=== PATIENT | female | born 1975 | race Caucasian/White ===

== ENCOUNTER → 2023-05-30 17:36 | Outpatient (REF) | payer BC, SELFPAY ==
[2023-06-08 08:45] LABS: HPV, High Risk Not Detected; HPV, High Risk Source Cervical
== END ==
LOC: CPAP 17:36
PROVIDERS: ATTENDING PHYSICIAN Obstetrics & Gynecology
DX: Z01.419 Encounter for gynecological examination (general) (routine) without abnormal findings (principal); Z12.4 Encounter for screening for malignant neoplasm of cervix; Z11.51 Encounter for screening for human papillomavirus (HPV)
CPT/HCPCS: 87624; G0123

== ENCOUNTER → 2023-06-22 14:27 | Outpatient (REF) | payer BC, SELFPAY | LOC: RAD 14:27 | PROVIDERS: ATTENDING PHYSICIAN Obstetrics & Gynecology; FAMILY PHYSICIAN Family Medicine | DX: Z30.431 Encounter for routine checking of intrauterine contraceptive device (principal) | CPT/HCPCS: 76830; 76856 ==

== ENCOUNTER → 2023-10-08 11:22 | Outpatient (REF) | payer BC, SELFPAY ==
[2023-10-08 12:12] LABS: ALT (SGPT) 15 U/L (0-35); AST (SGOT) 31 U/L (14-36); Albumin 4.6 g/dl (3.5-5.0); Alkaline Phosphatase 60 U/L (38-126); Blood Urea Nitrogen 13 mg/dl (7-17); Calcium 9.7 mg/dl (8.4-10.2); Carbon Dioxide 26 mmol/L (22-30); Chloride 105 mmol/L (98-107); Glucose 99 mg/dl (70-99); HDL Cholesterol 92 mg/dl; LDL Cholesterol, Calculated 61 mg/dl; Magnesium 2.2 mg/dl (1.6-2.3); Potassium 4.4 mmol/L (3.5-5.1); Sodium 139 mmol/L (135-145); Total Bilirubin 0.6 mg/dl (0.2-1.3); Total Cholesterol 162 mg/dl (50-199); Total Protein 7.4 g/dl (6.3-8.2); Triglyceride 48 mg/dl (10-149); Very Low Density Lipoprotein 9 mg/dl (0-30); eGFR > 60.00
[2023-10-08 12:40] LABS: TSH Reflex To Free T4 2.23 uIU/ml (0.47-4.68)
[2023-10-08 13:10] LABS: % Basophils 0.9 % (0-2); % Eosinophils 3.1 % (0-6); % Immature Granulocytes 0.2 % (0-0.5); % Monocytes 14.2 % (1.7-9.3); % Neutrophils 57.6 % (42.2-75.2); Absolute Eosinophils 0.1 10^3/uL (0-0.7); Absolute Lymphocytes 1.1 10^3/uL (1.2-3.4); Absolute Monocytes 0.6 10^3/uL (0.1-0.6); Absolute Neutrophils 2.6 10^3/uL (1.4-6.5); Hematocrit 40.3 % (37.0-47.0); Hemoglobin 13.7 g/dL (12.0-16.0); Mean Corpuscular Hgb 33.5 pg (27.0-31.0); Mean Corpuscular Volume 98.5 fL (81.0-99.0); Mean Platelet Volume 9.9 fL (7.4-10.4); Nucleated Red Blood Cells % 0 %; Platelet Count 173 10^3/uL (130-400); Red Blood Cell Count 4.09 10^6/uL (4.20-5.40); Red Cell Dist. Width 11.8 % (11.5-14.5); White Blood Cell Count 4.5 10^3/uL (4.8-10.8)
== END ==
LOC: REG 11:22
PROVIDERS: ATTENDING PHYSICIAN Physician Assistant Medical
DX: Z00.01 Encounter for general adult medical examination with abnormal findings (principal); K59.00 Constipation, unspecified
CPT/HCPCS: 36415; 80053; 80061; 83735; 84443; 85025

== ENCOUNTER → 2024-01-05 14:18 | Outpatient (REF) | payer BC, SELFPAY | LOC: WDC 14:18 | PROVIDERS: ATTENDING PHYSICIAN Obstetrics & Gynecology; FAMILY PHYSICIAN Physician Assistant Medical | DX: Z12.31 Encounter for screening mammogram for malignant neoplasm of breast (principal) | CPT/HCPCS: 77063; 77067 ==

== ENCOUNTER → 2024-06-13 16:18 | Outpatient (REF) | payer BC, SELFPAY ==
[2024-06-13 18:10] LABS: % Basophils 0.5 % (0-2); % Eosinophils 2.6 % (0-6); % Lymphocytes 24.5 % (20.5-51.1); % Neutrophils 58.4 % (42.2-75.2); ALT (SGPT) 17 U/L (0-35); AST (SGOT) 29 U/L (14-36); Absolute Eosinophils 0.1 10^3/uL (0-0.7); Absolute Monocytes 0.6 10^3/uL (0.1-0.6); Absolute Neutrophils 2.5 10^3/uL (1.4-6.5); Albumin 4.7 g/dl (3.5-5.0); Alkaline Phosphatase 63 U/L (38-126); Blood Urea Nitrogen 15 mg/dl (7-17); Calcium 9.6 mg/dl (8.4-10.2); Carbon Dioxide 27 mmol/L (22-30); Chloride 104 mmol/L (98-107); Glucose 85 mg/dl (70-99); HDL Cholesterol 96 mg/dl; Hematocrit 38.1 % (37.0-47.0); Hemoglobin 12.8 g/dL (12.0-16.0); LDL Cholesterol, Calculated 75 mg/dl; Mean Corp Hgb Conc. 33.6 g/dL (33.0-37.0); Mean Corpuscular Hgb 32.7 pg (27.0-31.0); Mean Corpuscular Volume 97.2 fL (81.0-99.0); Mean Platelet Volume 9.8 fL (7.4-10.4); Nucleated Red Blood Cells % 0 %; Platelet Count 163 10^3/uL (130-400); Potassium 4.5 mmol/L (3.5-5.1); Red Blood Cell Count 3.92 10^6/uL (4.20-5.40); Red Cell Dist. Width 12.3 % (11.5-14.5); Sodium 137 mmol/L (135-145); Total Bilirubin 0.6 mg/dl (0.2-1.3); Total Cholesterol 182 mg/dl (50-199); Total Protein 7.3 g/dl (6.3-8.2); Triglyceride 59 mg/dl (10-149); Very Low Density Lipoprotein 11 mg/dl (0-30); White Blood Cell Count 4.2 10^3/uL (4.8-10.8); eGFR > 60.00
[2024-06-13 18:38] LABS: TSH Reflex To Free T4 2.06 uIU/ml (0.47-4.68)
== END ==
LOC: REG 16:18
PROVIDERS: ATTENDING PHYSICIAN Family Medicine
DX: R00.2 Palpitations (principal)
CPT/HCPCS: 36415; 80053; 80061; 83735; 84443; 85025

== ENCOUNTER → 2024-07-04 11:09 | Outpatient (REF) | payer BC, SELFPAY ==
[2024-07-04 11:52] LABS: % Basophils 0.6 % (0-2); % Eosinophils 2.8 % (0-6); % Lymphocytes 25.4 % (20.5-51.1); % Monocytes 15.2 % (1.7-9.3); Absolute Eosinophils 0.1 10^3/uL (0-0.7); Absolute Lymphocytes 0.9 10^3/uL (1.2-3.4); Absolute Monocytes 0.5 10^3/uL (0.1-0.6); Hematocrit 40.8 % (37.0-47.0); Hemoglobin 13.7 g/dL (12.0-16.0); Mean Corp Hgb Conc. 33.6 g/dL (33.0-37.0); Mean Corpuscular Hgb 32.8 pg (27.0-31.0); Mean Corpuscular Volume 97.6 fL (81.0-99.0); Mean Platelet Volume 9.1 fL (7.4-10.4); Nucleated Red Blood Cells % 0 %; Platelet Count 157 10^3/uL (130-400); Red Blood Cell Count 4.18 10^6/uL (4.20-5.40); Red Cell Dist. Width 11.8 % (11.5-14.5); White Blood Cell Count 3.6 10^3/uL (4.8-10.8)
[2024-07-06 18:16] LABS: Number Of Markers 31 markers; Source Blood
== END ==
LOC: REG 11:09
PROVIDERS: ATTENDING PHYSICIAN Internal Medicine Hematology & Oncology; FAMILY PHYSICIAN Physician Assistant Medical
DX: D72.819 Decreased white blood cell count, unspecified (principal)
CPT/HCPCS: 36415; 85025

== ENCOUNTER → 2024-07-09 14:01 | Outpatient (REF) | payer BC, SELFPAY | LOC: RAD 14:01 | PROVIDERS: ATTENDING PHYSICIAN Internal Medicine Hematology & Oncology; FAMILY PHYSICIAN Physician Assistant Medical | DX: D72.819 Decreased white blood cell count, unspecified (principal); R89.6 Abnormal cytological findings in specimens from other organs, systems and tissues | CPT/HCPCS: 70491; 71260; 74177; Q9967 ==

== ENCOUNTER → 2024-07-15 12:14 | Outpatient (REF) | payer BC, SELFPAY | LOC: CPAP 12:14 | PROVIDERS: ATTENDING PHYSICIAN Obstetrics & Gynecology | DX: Z11.51 Encounter for screening for human papillomavirus (HPV) (principal); Z01.419 Encounter for gynecological examination (general) (routine) without abnormal findings | CPT/HCPCS: 87624 ==

== ENCOUNTER 2024-07-21 06:25 | Day surgery (SDC) | payer BC, SELFPAY ==
[2024-07-21] VITALS (8 sets, daily range): BP systolic 94–105; BP diastolic 53–77; BMI 22.2
[2024-07-21] MEDS: TYLENOL 1000 MG PO (09:55)
[2024-07-21] MEDS: NORMOSOL-R/PLASMALYTE-A 1000 IV (09:56)
[2024-07-21] MEDS: HEPARIN 5000 UNITS SC (11:40)
--- NOTE | 2024-07-21 12:32 | OR.RPT ---
Operative Report
Operative Report
Primary Surgeon: Harshil
Assisting: Joslyn ARMENDARIZ
Pre-op Diagnosis: Lymphadenopathy
Post-op Diagnosis: Same
Procedure Performed: Left inguinal lymph node excision
Anesthesia Type: MAC local
Specimen / Cultures: Left groin lymph nodes
Estimated Blood Loss: 1cc
Complications: None immediate
Operative Findings: Existing scar used for incision, 2 joined nodes excised in toto
Date of Surgery: 07/21/24
Indications: This 48F developed lymphadenopathy of her groins and axillae. Left groin lymph node excision under MAC local was elected.
PROCEDURE: After informed consent was obtained, the left groin was marked together with the patient in preop and the patient was brought to the operative suite and placed supine on the operating table. The patient was sedated, prepped and draped in
the usual sterile manner and an adequate local anesthetic was administered using 1% lidocaine with epinephrine.
A skin incision was made with #10 blade at the site of her existing scar and the skin was divided with electrocautery. The nodes were dissected away from surrounding structures using blunt dissection and electrocautery and ultimately excised intact.
Hemostasis was achieved with electrocautery. The incision was then closed in layers with deep dermal interrupted 3-0 vicryl and interrupted 4-0 monocryl suture. Topical skin glue was applied.
The patient tolerated the procedure well and was taken to the PACU in stable condition.
The assistance of Joslyn ARMENDARIZ was required due to the complexity of the procedure. During the procedure she assisted with retraction, resection, and closure of the wound.
== END 2024-07-21 14:15 | disposition home or self-care (01) ==
LOC: SDS 06:25
PROVIDERS: ATTENDING PHYSICIAN Surgery
DX: C83.05 Small cell B-cell lymphoma, lymph nodes of inguinal region and lower limb (principal); R59.0 Localized enlarged lymph nodes
CPT/HCPCS: 38531; 88305; 88341; 88342; C1894

== ENCOUNTER → 2024-08-05 13:34 | Outpatient (REF) | payer BC, SELFPAY ==
[2024-08-05 14:13] LABS: % Basophils 0.6 % (0-2); % Eosinophils 2.4 % (0-6); % Immature Granulocytes 0.2 % (0-0.5); % Lymphocytes 18.2 % (20.5-51.1); % Monocytes 9.5 % (1.7-9.3); % Neutrophils 69.1 % (42.2-75.2); Absolute Eosinophils 0.1 10^3/uL (0-0.7); Absolute Monocytes 0.5 10^3/uL (0.1-0.6); Absolute Neutrophils 3.7 10^3/uL (1.4-6.5); Hematocrit 40.6 % (37.0-47.0); Hemoglobin 13.5 g/dL (12.0-16.0); Mean Corp Hgb Conc. 33.3 g/dL (33.0-37.0); Mean Corpuscular Hgb 32.7 pg (27.0-31.0); Mean Corpuscular Volume 98.3 fL (81.0-99.0); Mean Platelet Volume 9.7 fL (7.4-10.4); Nucleated Red Blood Cells % 0 %; Platelet Count 167 10^3/uL (130-400); Red Blood Cell Count 4.13 10^6/uL (4.20-5.40); White Blood Cell Count 5.4 10^3/uL (4.8-10.8)
[2024-08-05 14:25] LABS: ALT (SGPT) 15 U/L (0-35); AST (SGOT) 24 U/L (14-36); Albumin 4.4 g/dl (3.5-5.0); Alkaline Phosphatase 51 U/L (38-126); Blood Urea Nitrogen 20 mg/dl (7-17); Calcium 9.7 mg/dl (8.4-10.2); Carbon Dioxide 30 mmol/L (22-30); Chloride 108 mmol/L (98-107); Glucose 76 mg/dl (70-99); LDH 154 U/L (120-246); Potassium 4.1 mmol/L (3.5-5.1); Sodium 141 mmol/L (135-145); Total Bilirubin 0.7 mg/dl (0.2-1.3); Total Protein 7.3 g/dl (6.3-8.2); Uric Acid 4.5 mg/dl (2.5-6.2); eGFR > 60.00
[2024-08-05 14:42] LABS: FSH 29.3 mIU/ml
[2024-08-06 23:26] LABS: IgG 511 mg/dl (700-1600)
[2024-08-06 23:42] LABS: IgM > 800 mg/dl (40-230)
== END ==
LOC: REG 13:34
PROVIDERS: ATTENDING PHYSICIAN Obstetrics & Gynecology; FAMILY PHYSICIAN Physician Assistant Medical; OTHER PHYSICIAN Internal Medicine Hematology & Oncology
DX: D72.819 Decreased white blood cell count, unspecified (principal); R89.6 Abnormal cytological findings in specimens from other organs, systems and tissues; R59.1 Generalized enlarged lymph nodes; C83.08 Small cell B-cell lymphoma, lymph nodes of multiple sites; N91.0 Primary amenorrhea
CPT/HCPCS: 36415; 80053; 82784; 83001; 83002; 83615; 84550; 85025

== ENCOUNTER → 2024-08-15 11:30 | Outpatient (REF) | payer BC, SELFPAY | LOC: PET 11:30 | PROVIDERS: ATTENDING PHYSICIAN Internal Medicine Hematology & Oncology | DX: C83.08 Small cell B-cell lymphoma, lymph nodes of multiple sites (principal) | CPT/HCPCS: 78815; A9552 ==

== ENCOUNTER → 2024-08-20 11:25 | Outpatient (REF) | payer BC, SELFPAY | LOC: REG 11:25 | PROVIDERS: ATTENDING PHYSICIAN Internal Medicine Hematology & Oncology; FAMILY PHYSICIAN Physician Assistant Medical | DX: D72.819 Decreased white blood cell count, unspecified (principal); R89.6 Abnormal cytological findings in specimens from other organs, systems and tissues; R59.1 Generalized enlarged lymph nodes; C83.08 Small cell B-cell lymphoma, lymph nodes of multiple sites | CPT/HCPCS: 36415; 82784; 83521; 84155; 84165; 85810; 86334 ==

== ENCOUNTER → 2024-10-28 11:18 | Outpatient (REF) | payer BC, SELFPAY ==
[2024-10-28 12:12] LABS: Hematocrit 40.1 % (37.0-47.0); Hemoglobin 13.1 g/dL (12.0-16.0); Mean Corp Hgb Conc. 32.7 g/dL (33.0-37.0); Mean Corpuscular Volume 98.5 fL (81.0-99.0); Nucleated Red Blood Cells % 0 %; Platelet Count 158 10^3/uL (130-400); Red Cell Dist. Width 11.7 % (11.5-14.5)
[2024-10-28 13:44] LABS: ALT (SGPT) 14 U/L (0-35); AST (SGOT) 25 U/L (14-36); Albumin 4.6 g/dl (3.5-5.0); Alkaline Phosphatase 52 U/L (38-126); Blood Urea Nitrogen 19 mg/dl (7-17); Calcium 9.2 mg/dl (8.4-10.2); Carbon Dioxide 25 mmol/L (22-30); Chloride 107 mmol/L (98-107); Glucose 91 mg/dl (70-99); HDL Cholesterol 77 mg/dl; Potassium 4.2 mmol/L (3.5-5.1); Sodium 138 mmol/L (135-145); Total Protein 7.5 g/dl (6.3-8.2); Very Low Density Lipoprotein 10 mg/dl (0-30); eGFR > 60.00
[2024-10-28 16:03] LABS: LDH 164 U/L (120-246); LDL Cholesterol, Calculated 112 mg/dl; Uric Acid 4.2 mg/dl (2.5-6.2)
== END ==
LOC: REG 11:18
PROVIDERS: ATTENDING PHYSICIAN Internal Medicine Hematology & Oncology; FAMILY PHYSICIAN Physician Assistant Medical
DX: Z00.01 Encounter for general adult medical examination with abnormal findings (principal); D72.819 Decreased white blood cell count, unspecified; R89.6 Abnormal cytological findings in specimens from other organs, systems and tissues; R59.1 Generalized enlarged lymph nodes; C88.00 Waldenstrom macroglobulinemia not having achieved remission; C83.08 Small cell B-cell lymphoma, lymph nodes of multiple sites
CPT/HCPCS: 36415; 80053; 80061; 82784; 83615; 84443; 84550; 85025

== ENCOUNTER 2025-03-02 06:17 | Day surgery (SDC) | payer BC, SELFPAY ==
[2025-02-24 14:36] VITALS: BMI 22.2
[2025-03-02 07:30] VITALS: BP 119/69
[2025-03-02] MEDS: NORMOSOL-R/PLASMALYTE-A 1000 IV (07:42)
[2025-03-02 07:43] VITALS: BMI 22.2
[2025-03-02] MEDS: CELEBREX 200 MG PO (07:50)
[2025-03-02] MEDS: TYLENOL 1000 MG PO (07:50)
[2025-03-02] MEDS: TRANSDERM-SCOP 1 PATCH TRANSDERM (07:51)
[2025-03-02 09:30] VITALS: BP 117/79; BP 119/69
[2025-03-02 09:45] VITALS: BP 111/77
[2025-03-02 10:00] VITALS: BP 110/74; BP 116/83
[2025-03-02 10:20] VITALS: BP 116/83
[2025-03-02 10:35] VITALS: BP 112/80
== END 2025-03-02 11:10 | disposition home or self-care (01) ==
LOC: SDS 06:17
PROVIDERS: ATTENDING PHYSICIAN Student in an Organized Health Care Education/Training Program; FAMILY PHYSICIAN Physician Assistant Medical
DX: M20.5X2 Other deformities of toe(s) (acquired), left foot (principal); M72.2 Plantar fascial fibromatosis; M79.672 Pain in left foot
CPT/HCPCS: 28289; 93005